=== PATIENT | female | born 1995 | race Caucasian/White ===

== ENCOUNTER 2021-11-22 17:04 | Outpatient (CLI) | payer OTHER ==
[~2021-11-22 17:04] MED LIST: COLACE 100MG C100 MG PO; IBUPROFEN600 MG PO; PRENATAL TABLE1 EAC3 PO; SALINE NOSE SPR45 ML; ZANTAC150 MG PO
== END 2021-11-22 20:52 | disposition home or self-care (01) ==
LOC: GENOP 17:04
DX: O99.891 Other specified diseases and conditions complicating pregnancy (principal); O47.03 False labor before 37 completed weeks of gestation, third trimester; O16.3 Unspecified maternal hypertension, third trimester; Z3A.33 33 weeks gestation of pregnancy; R78.81 Bacteremia; Z87.891 Personal history of nicotine dependence; Z88.5 Allergy status to narcotic agent
CPT/HCPCS: 59025; 81001; 82731; 87086; 96360; 96361; 96367; 96372; J0696; J0702; J3105; J7030

== ENCOUNTER 2021-12-21 15:31 | Outpatient (CLI) | payer OTHER ==
[2021-12-21 19:29] LABS: HEMOGLOBIN 10.5 gm/dl (12.3-15.3); RED BLOOD COUNT 3.76 M/UL (4.00-5.10)
== END 2021-12-21 21:53 | disposition home or self-care (01) ==
LOC: GENOP 15:31
PROVIDERS: Obstetrics & Gynecology
DX: O99.891 Other specified diseases and conditions complicating pregnancy (principal); O47.1 False labor at or after 37 completed weeks of gestation; O99.353 Diseases of the nervous system complicating pregnancy, third trimester; G43.909 Migraine, unspecified, not intractable, without status migrainosus; R10.2 Pelvic and perineal pain; M54.9 Dorsalgia, unspecified; R10.9 Unspecified abdominal pain; Z3A.37 37 weeks gestation of pregnancy
CPT/HCPCS: 81001; 82962; 85025; 96360; 96361; J2300; J7030

== ENCOUNTER 2021-12-29 16:34 | Inpatient (IN) | payer OTHER ==
[2021-12-29 17:04] LABS: HEMOGLOBIN 10.7 gm/dl (12.3-15.3); RED BLOOD COUNT 3.77 M/UL (4.00-5.10); WHITE BLOOD COUNT 9.2 K/UL (4.5-11.0)
[2021-12-30] MEDS ORDERED: HYDROCODON-ACE1 EAC4 PO (18:28)
[2021-12-30] MEDS ORDERED: IBUPROFEN800 MG PO (18:28)
[2021-12-30] MEDS ORDERED: COLACE 100MG C100 MG PO (18:28)
[2021-12-31 08:00] LABS: HEMOGLOBIN 10.4 gm/dl (12.3-15.3)
== END 2022-01-01 17:23 | disposition home or self-care (01) | DRG 807 ==
LOC: GENOP 16:34 → CDU 20:34 → OB 12-30 06:47 → CDU 12-30 21:24 → OB 12-30 21:25
PROVIDERS: Obstetrics & Gynecology; ADMIT Obstetrics & Gynecology
PROC: 10907ZC Drainage of Amniotic Fluid, Therapeutic from Products of Conception, Via Natural or Artificial Opening (ICD-10-PCS; 2021-12-29)
PROC: 10H07YZ Insertion of Other Device into Products of Conception, Via Natural or Artificial Opening (ICD-10-PCS; 2021-12-29)
PROC: 4A1H7CZ Monitoring of Products of Conception, Cardiac Rate, Via Natural or Artificial Opening (ICD-10-PCS; 2021-12-29)
PROC: 10H073Z Insertion of Monitoring Electrode into Products of Conception, Via Natural or Artificial Opening (ICD-10-PCS; 2021-12-29)
PROC: 10E0XZZ Delivery of Products of Conception, External Approach (ICD-10-PCS; principal; 2021-12-30)
PROC: 3E033VJ Introduction of Other Hormone into Peripheral Vein, Percutaneous Approach (ICD-10-PCS; 2021-12-30)
DX: O24.420 Gestational diabetes mellitus in childbirth, diet controlled (principal); Z37.0 Single live birth; O36.8330 Maternal care for abnormalities of the fetal heart rate or rhythm, third trimester, not applicable or unspecified; Z28.21 Immunization not carried out because of patient refusal; O99.892 Other specified diseases and conditions complicating childbirth; G43.909 Migraine, unspecified, not intractable, without status migrainosus; Z82.49 Family history of ischemic heart disease and other diseases of the circulatory system; Z83.3 Family history of diabetes mellitus; Z80.1 Family history of malignant neoplasm of trachea, bronchus and lung; Z82.0 Family history of epilepsy and other diseases of the nervous system; Z82.5 Family history of asthma and other chronic lower respiratory diseases; Z3A.39 39 weeks gestation of pregnancy
CPT/HCPCS: 36415; 81001; 82800; 82962; 85014; 85018; 85025; J2300; J2590; J3010; J7120; U0002